=== PATIENT | male | born 1980 | race Caucasian/White ===

== ENCOUNTER 2021-10-25 20:10 | Observation (INO) ==
[2021-10-25 20:52] LABS: Hematocrit (blood only) 45.5 % (42-52); Hemoglobin 16.5 g/dL (14.0-18.0); Mean Corpuscular Hemoglobin 32.9 pg (25-34); Mean Corpuscular Hgb Conc 36.3 g/dL (32-36); Mean Corpuscular Volume 90.6 fL (80-100); Platelet Count 267 K/uL (130-400); RDW Coefficient of Variation 13.9 % (11.5-14.5); Red Blood Count 5.02 M/uL (4.7-6.1); White Blood Count 8.57 K/uL (4.8-10.8)
[2021-10-25 21:08] LABS: INR 0.9 (0.9-1.1); Partial Thromboplastin Time 26.2 Seconds (21.0-31.0); Prothrombin Time 9.8 Seconds (9.0-12.0)
[2021-10-25 21:23] LABS: Anion Gap 8 (3-11); Blood Urea Nitrogen 16 mg/dl (6-23); Calcium 9.4 mg/dl (8.5-10.1); Carbon Dioxide 24 mmol/L (21-32); Chloride 106 mmol/L (98-107); Creatinine Clr Calc Pharmacy 80.8 ml/min; Est GFR (African American) 90.8 ml/min; Est GFR (Non-African American) 78.3 ml/min; Glucose 131 mg/dl (70-99(Fasting)); Lipase 76 U/L (11-82); Potassium 3.7 mmol/L (3.5-5.1); Sodium 138 mmol/L (136-145)
[2021-10-25 21:25] LABS: Troponin I < 0.03 ng/ml (0-0.04)
[2021-10-25 22:03] LABS: Basophils # (auto) 0.04 K/uL (0-0.2); Basophils % (auto) 0.5 %; Eosinophils # (auto) 0.45 K/uL (0-0.5); Eosinophils % (auto) 5.3 %; Immature Granulocytes # (auto) 0.02 K/uL (0.00-0.02); Immature Granulocytes % (auto) 0.2 %; Lymphocytes % (auto) 36.2 %; Monocytes # (auto) 0.62 K/uL (0.11-0.59); Monocytes % (auto) 7.2 %; Neutrophils # (auto) 4.34 K/uL (1.4-6.5); Neutrophils % (auto) 50.6 %
[2021-10-25] MEDS ORDERED: ASPIRIN 81 MG CHEW PO STA (22:32)
--- NOTE | 2021-10-25 23:33 | History & Physical Report ---
Date of Service October 25, 2021 Assessment & Plan (1) Chest pain: Plan: Alvaro Chin is a 41-year-old male with history of tobacco use who presented to the hospital due to chest pain. He will be admitted for observation, cardiac monitoring, serial cardiac enzymes. Chest pain Patient does not have an established history of cardiac disease, though admittedly he does not visit his PCP often He does have several risk factors including tobacco use, elevated cholesterol, strong family history, excessive alcohol use Admit to telemetry cardiac monitoring Trend serial troponins initial troponin negative EKG showing normal sinus rhythmEKG daily and as needed with chest pain Lipid profile and A1c ordered for a.m. for risk stratification Alcohol abuse Patient admits to consumption of 6 beers daily, does not feel this is an issue, no wish to quit Last drink 2 days ago, would put him at risk for acute alcohol withdrawal No current signs of withdrawal Will start on AWSS protocol, Ativan as needed for at risk patient Tobacco use Encouraged cessation Provide alcohol cessation education DVT prophylaxis: Lovenox SQ Dispo: Admit to telemetry Diet: Heart healthy CODE STATUS: Full (2) Tobacco use: (3) Alcohol abuse: History of Present Illness Primary Care Provider: Demar Low MD Alvaro Chin is a 41-year-old male with history of tobacco use who presented to the hospital due to chest pain since 8 PM on 10/24/2021. He says at worst the pain was a 5 out of 10, described as aching and heavy and radiated down his right arm. States the pain eventually did decrease in intensity especially with rest and is now at about a 2 out of 10 feeling more like a pressure. It did continue to radiate down his right arm intermittently throughout the day. He says he felt like his chest was tense all day. He did not have shortness of breath, palpitations, nausea, vomiting, diaphoresis, headache. He did feel somewhat lightheaded and admits to having felt very anxious about the chest pain. Patient admits to having occasional heartburn. He is a current active smoker. He was stating that he will have a cigarette and a couple of beers on a daily basis. Upon further questioning he admitted that he drinks about 6 beers daily. Patient has a strong family history of heart issues. His dad had a heart attack at age 44, he had 2 uncles from heart attacks also at age 44, and has 9 additional paternal uncles and he says most of them have had heart attacks in t heir lifetime. In the ED patient received aspirin 324 mg. EKG showed normal sinus rhythm without ST changes. He had a chest x-ray showing no acute cardiopulmonary disease. Labs drawn in the ED showed a negative troponin, normal blood counts, and normal electrolytes. Allergies Allergy/AdvReac Type Severity Reaction Status Date / Time Penicillins Allergy Severe Anaphylaxis Verified 10/25/21 21:06 ENVIRONMENTAL Allergy Intermediate ITCHY Uncoded 10/25/21 21:06 EYES, SNEEZING, CONGESTION Home Medications Medication Instructions Recorded Confirmed Type aspirin 81 mg tablet,delayed 81 mg PO ONCE 10/25/21 10/25/21 History release atorvastatin 40 mg tablet 40 mg PO DAILY #30 tab 10/26/21 Rx nitroglycerin 0.4 mg sublingual 0.4 mg SUBLINGUAL DAILY PRN #30 tab 10/26/21 Rx tablet (Nitrostat) thiamine HCl (vitamin B1) 100 mg 100 mg PO QAM #30 tab 10/26/21 Rx tablet Past Med/Surg History Medical History (Updated 10/26/21 @ 00:15 by Gonzales Aldrich) No pertinent past medical history Surgical History (Updated 10/25/21 @ 23:59 by Gonzales Aldrich) No pertinent past surgical history Family History (Updated 10/26/21 @ 00:00 by Gonzales Aldrich) Father Myocardial infarction [place] in his 40s Social History Smoking Status: Current some day smoker Second Hand Exposure: No; Hx Alcohol Use: Yes Alcohol type: beer Hx Substance Use: No Preferred Language: Iranian Communication Ability: Effective Candy Polisher Required: No Beliefs That Will Affect Care: None Current Living Situation: Significant Other Feels Safe at Home: Yes Assistive Devices: None Review of Systems Review of Systems: All systems reviewed & are unremarkable except as noted in HPI & below Physical Exam Physical Exam: GENERAL: A&Ox3. NAD. HEENT: PERRL, EOMI. Moist mucous membranes. NECK: No JVD. No lymphadenopathy. CHEST/LUNGS: CTAB A/P. No crackles, wheezes, rales, rhonchi. CP not reproducible on palpation. HEART: RRR. No m/g/r. No carotid bruits. ABDOMEN: NT/ND, soft. BS+ x4 EXTREMITIES: No cyanosis, no clubbing, no edema SKIN: Warm and dry. No rashes or lesions. PSYCHIATRIC: Euthymic affect, no SI, no pressured speech, no hallucinations NEUROLOGIC: No FND. CN II-XII grossly intact. Results & Data Results & Data ([facility]) Vital Signs (Past 12 Hours) Vital Signs Temp Pulse Pulse Resp BP BP Pulse Ox 10/25/21 22:43 63 18 139/91 98 10/25/21 21:07 61 63 18 136/95 98 10/25/21 20:17 36.7 C 77 18 152/94 H 98 Code Status & VTE Plan VTE Prophylaxis Plan VTE Prophylaxis will be ordered: Yes Supervising Physician Co-Signing Physician Notes Attending addendum: I have physically seen this patient, have supervised the medical residents activities, and agree with the H&P unless as otherwise noted. Assessment and Plan: Chest pain- The patient will be admitted to telemetry for serial cardiac enzymes, serial EKG's, cardiac rhythm monitoring and a 2-D echocardiogram with Dopplers. Check a fasting lipid panel and hemoglobin A1c Alcohol abuse- AWSS protocol IV fluid rehydration Cessation counseling Tobacco use disorder- cessation counseling Remaining orders and notations as noted Resident Activity Tracking Resident Involvement: Resident Care Provided Care Provided: Adult Hospital Medicine (1) Chest pain Chest pain type: unspecified Qualified Code(s): R07.9 - Chest pain, unspecified
--- NOTE | 2021-10-26 00:03 | Emergency Department Note ---
History of Present Illness General Chief Complaint: Chest Pain Stated Complaint: CHEST PAIN/TIGHTNESS. LIGHTHEADED Time Seen by Provider: 10/25/21 20:22 History of Present Illness Provider Complaint: chest pain Onset (ago): day(s) 2 Duration: intermittent Onset: during rest Pain Location: substernal Pain Radiation: RUE Severity: moderate Maximum Pain Intensity: 5 Current Pain Intensity: 0 Quality: + aching and + heaviness Relieved By: + rest Exacerbated By: + nothing Context: no recent illness, no recent surgery, no recent immobilization, no recent travel, no trauma/injury, no new medications or no history of DVT/PE Associated symptoms: no nausea, no vomiting, no diaphoresis, no dyspnea, no syncope, no palpitations, no fever, no cough or no leg swelling Home Medications Medication Instructions Recorded Confirmed Type aspirin 81 mg tablet,delayed 81 mg PO ONCE 10/25/21 10/25/21 History release Allergies Allergy/AdvReac Type Severity Reaction Status Date / Time Penicillins Allergy Severe Anaphylaxis Verified 10/25/21 21:06 ENVIRONMENTAL Allergy Intermediate ITCHY Uncoded 10/25/21 21:06 EYES, SNEEZING, CONGESTION Past Med/Surg History Medical History (Updated 10/26/21 @ 00:15 by Gonzales Aldrich) No pertinent past medical history Surgical History (Updated 10/25/21 @ 23:59 by Gonzales Aldrich) No pertinent past surgical history Family History (Updated 10/26/21 @ 00:00 by Gonzales Aldrich) Father Myocardial infarction [place] in his 40s Social History Smoking Status: Current every day smoker Preferred Language: Tajik Feels Safe at Home: Yes Review of Systems A total of 10 systems reviewed and were otherwise negative Physical Exam Vital Signs Vital Signs - 24 hr 10/25/21 20:17 10/25/21 21:07 10/25/21 22:43 Temperature 36.7 C Temperature Source Temporal Artery Scan Pulse Rate 77 61 Pulse Rate [Finger] 63 63 Pulse Rhythm Regular Pulse Strength Normal Respiratory Rate 18 18 18 Respiratory Effort / Characteristics Non-Labored Respiratory Depth Normal Respiratory Pattern Regular Blood Pressure 152/94 H Blood Pressure [Left Arm] 136/95 139/91 Blood Pressure Mean 113 Blood Pressure Mean [Left Arm] 108 107 Blood Pressure Position Lying Pulse Oximetry 98 98 98 Oxygen Delivery Method Room Air Room Air Room Air Sepsis Recent Fever Within 48 Hours No Sepsis New/Unexplained Change in Mental Status N/A Sepsis Action Taken by Nursing No Action Required 10/26/21 00:08 Temperature Temperature Source Pulse Rate 60 Pulse Rate [Finger] Pulse Rhythm Pulse Strength Respiratory Rate 18 Respiratory Effort / Characteristics Respiratory Depth Respiratory Pattern Blood Pressure 135/90 Blood Pressure [Left Arm] Blood Pressure Mean Blood Pressure Mean [Left Arm] Blood Pressure Position Pulse Oximetry 97 Oxygen Delivery Method Room Air Sepsis Recent Fever Within 48 Hours Sepsis New/Unexplained Change in Mental Status Sepsis Action Taken by Nursing Physical Exam GENERAL: He is oriented to person, place, and time. He appears well-developed and well-nourished. He does not appear distressed. HENT: Exam performed. - Head: Normocephalic and atraumatic. - Right Ear: External ear normal. No mastoid tenderness. - Left Ear: External ear normal. No mastoid tenderness. - Mouth/Throat: The oropharynx is clear and moist. No trismus in the jaw. No dental abscesses or uvula swelling. No oropharyngeal exudate or tonsillar abscesses. EYES: Conjunctivae and EOM are normal. Pupils are equal, round, and reactive to light. Right eye exhibits no discharge. Left eye exhibits no discharge. No scleral icterus. NECK: Normal range of motion. Neck supple. No JVD present. No spinous process tenderness present. No carotid bruit present. No rigidity. No tracheal deviation and normal range of motion present. No Brudzinski's sign and no Kernig's sign noted. CV: Normal rate, regular rhythm, normal heart sounds and intact distal pulses. There is no peripheral edema. Palpable radial pulses bue. PULM/CHEST: Effort normal and breath sounds normal. No respiratory distress. No stridor. He has no wheezes. He has no rales. - Chest Wall: He exhibits no tenderness. ABD: The abdomen is soft. Bowel sounds are normal. He has no distension. No mass is present. There is no tenderness. There is no rebound, no guarding, no Mccall's sign and no tenderness at McBurney's point. Rovsig negative. MUSC/SKEL: Normal range of motion. There is no peripheral edema, tenderness or deformity. LYMPH: No cervical adenopathy. NEURO: He is alert and oriented to person, place, and time. He has normal strength. No cranial nerve deficit or sensory deficit. Coordination and gait normal. GCS eye subscore is 4. GCS verbal subscore is 5. GCS motor subscore is 6. Cerebellar tests wnl. SKIN: Skin is warm and dry. He is not diaphoretic. PSYCH: He has a normal mood and affect. Behavior is normal. Judgment and thought content normal. Course Course 2021: The patient was evaluated in room C3. A complete history and physical exam was performed Cardiac monitoring: An order was placed for continuous cardiac monitoring. The monitor shows a rate of 60 with sinus rhythm 2315: Vital signs stable. Labs and imaging within normal limits patient was offered delta troponin and possible outpatient follow-up cardiology inpatient observation for rule out ACS. After long discussion with his the patient elected for the patient to be admitted for observation for chest pain rule out ACS. [place] any hospitalist will be contacted for admission. Administered Medications Discontinued Medications Aspirin (Aspirin 81 Mg Chew) 324 mg PO NOW STA Stop: 10/25/21 22:33 Last Admin: 10/25/21 22:43 Dose: 324 mg Documented by: [id number] Medical Decision Making Laboratory Data Result diagrams: 10/25/21 20:35 10/25/21 20:35 Labs: Lab Results 10/25/21 10/25/21 10/25/21 Range/Units 20:35 20:35 20:35 WBC 8.57 (4.8-10.8) K/uL RBC 5.02 (4.7-6.1) M/uL Hgb 16.5 (14.0-18.0) g/dL Hct 45.5 (42-52) % MCV 90.6 (80-100) fL MCH 32.9 (25-34) pg MCHC 36.3 H (32-36) g/dL RDW Std Deviation 46.0 (36.4-46.3) fL RDW Coeff of Harriet 13.9 (11.5-14.5) % Plt Count 267 (130-400) K/uL MPV 9.0 (7.4-10.4) fL Immature Gran % (Auto) 0.2 % Neut % (Auto) 50.6 % Lymph % (Auto) 36.2 % White % (Auto) 7.2 % Eos % (Auto) 5.3 % Baso % (Auto) 0.5 % Neut # (Auto) 4.34 (1.4-6.5) K/uL Lymph # (Auto) 3.10 (1.2-3.4) K/uL White # (Auto) 0.62 H (0.11-0.59) K/uL Eos # (Auto) 0.45 (0-0.5) K/uL Baso # (Auto) 0.04 (0-0.2) K/uL Immature Gran # (Auto) 0.02 (0.00-0.02) K/uL PT 9.8 (9.0-12.0) Seconds INR 0.9 (0.9-1.1) APTT 26.2 (21.0-31.0) Seconds PTT Ratio 1.0 Sodium 138 (136-145) mmol/L Potassium 3.7 (3.5-5.1) mmol/L Chloride 106 (98-107) mmol/L Carbon Dioxide 24 (21-32) mmol/L Anion Gap 8 (3-11) BUN 16 (6-23) mg/dl Creatinine 1.14 (0.6-1.4) mg/dl Est Cr Clr Drug Dosing 80.8 ml/min Est GFR ( Amer) 90.8 ml/min Est GFR (Non-Af Amer) 78.3 ml/min BUN/Creatinine Ratio 14.0 (10-20) Glucose 131 H (70-99(Fasting)) mg/dl Calcium 9.4 (8.5-10.1) mg/dl Troponin I < 0.03 (0-0.04) ng/ml Lipase 76 (11-82) U/L SARS-CoV-2, RNA, NAAT (NEGATIVE) 10/25/21 Range/Units 22:45 WBC (4.8-10.8) K/uL RBC (4.7-6.1) M/uL Hgb (14.0-18.0) g/dL Hct (42-52) % MCV (80-100) fL MCH (25-34) pg MCHC (32-36) g/dL RDW Std Deviation (36.4-46.3) fL RDW Coeff of Harriet (11.5-14.5) % Plt Count (130-400) K/uL MPV (7.4-10.4) fL Immature Gran % (Auto) % Neut % (Auto) % Lymph % (Auto) % White % (Auto) % Eos % (Auto) % Baso % (Auto) % Neut # (Auto) (1.4-6.5) K/uL Lymph # (Auto) (1.2-3.4) K/uL White # (Auto) (0.11-0.59) K/uL Eos # (Auto) (0-0.5) K/uL Baso # (Auto) (0-0.2) K/uL Immature Gran # (Auto) (0.00-0.02) K/uL PT (9.0-12.0) Seconds INR (0.9-1.1) APTT (21.0-31.0) Seconds PTT Ratio Sodium (136-145) mmol/L Potassium (3.5-5.1) mmol/L Chloride (98-107) mmol/L Carbon Dioxide (21-32) mmol/L Anion Gap (3-11) BUN (6-23) mg/dl Creatinine (0.6-1.4) mg/dl Est Cr Clr Drug Dosing ml/min Est GFR ( Amer) ml/min Est GFR (Non-Af Amer) ml/min BUN/Creatinine Ratio (10-20) Glucose (70-99(Fasting)) mg/dl Calcium (8.5-10.1) mg/dl Troponin I (0-0.04) ng/ml Lipase (11-82) U/L SARS-CoV-2, RNA, NAAT NEGATIVE (NEGATIVE) Imaging Data Chest x-ray: My impression: Chest x-ray negative. Airway clear. No pneumothorax. No consolidation. No cardiomegaly or cephalization.. No free air under the diaphragm. No fractures of the skeletal structures. ECG Data Indication: chest pain Rate (beats per minute): 64 Rhythm: normal sinus Findings: no ST depression, no ST elevation or no prolonged QT MDM Narrative Vital signs stable. Labs and imaging within normal limits patient was offered delta troponin and possible outpatient follow-up cardiology inpatient observation for rule out ACS. After long discussion with his the patient elected for the patient to be admitted for observation for chest pain rule out ACS. [place] any hospitalist will be contacted for admission. Impression & Plan Chest pain Discharge Plan Visit Data Chief Complaint: Chest Pain Stated Complaint: CHEST PAIN/TIGHTNESS. LIGHTHEADED ED Provider: Gonzales Aldrich Discharge Problem: Chest pain Patient Disposition: Admitted As Inpatient Discharge Instructions Interventions: ED Discharge Assessment Last Done: 10/26/21 00:08 Forms Stand Alone Forms: [employer] Prescriptions Prescriptions: No Action aspirin 81 mg Tablet,Delayed Release (Dr/Ec) 81 mg PO ONCE RF: 0 Referrals Referrals: Demar Low MD [Primary Care Provider] -
[2021-10-26] MEDS ORDERED: NITROGLYCERIN SL 0.4 MG/TAB TAB SL PRN (00:27)
[2021-10-26] MEDS ORDERED: POLYETHYLENE (MIRALAX) 17 GM PACK PO PRN (00:27)
[2021-10-26] MEDS ORDERED: MoRPHine SULFATE 2 MG/ML CARP IV PRN (00:27)
[2021-10-26] MEDS ORDERED: ACETAMINOPHEN 325 MG TAB PO PRN (00:27)
[2021-10-26 01:18] LABS: Basophils # (auto) 0.03 K/uL (0-0.2); Basophils % (auto) 0.3 %; Eosinophils # (auto) 0.31 K/uL (0-0.5); Eosinophils % (auto) 3.5 %; Hematocrit (blood only) 44.8 % (42-52); Hemoglobin 15.8 g/dL (14.0-18.0); Immature Granulocytes # (auto) 0.02 K/uL (0.00-0.02); Immature Granulocytes % (auto) 0.2 %; Lymphocytes # (auto) 2.46 K/uL (1.2-3.4); Mean Corpuscular Hemoglobin 32.2 pg (25-34); Mean Corpuscular Hgb Conc 35.3 g/dL (32-36); Mean Corpuscular Volume 91.2 fL (80-100); Mean Platelet Volume 9.2 fL (7.4-10.4); Monocytes # (auto) 0.58 K/uL (0.11-0.59); Monocytes % (auto) 6.6 %; Neutrophils # (auto) 5.38 K/uL (1.4-6.5); Neutrophils % (auto) 61.4 %; Platelet Count 276 K/uL (130-400); RDW Coefficient of Variation 13.8 % (11.5-14.5); RDW Standard Deviation 46.5 fL (36.4-46.3); Red Blood Count 4.91 M/uL (4.7-6.1); White Blood Count 8.78 K/uL (4.8-10.8)
[2021-10-26 01:45] LABS: Albumin Globulin Ratio 1.7 (0.9-2); Albumin Level 4.3 gm/dl (3.4-5.0); BUN Creatinine Ratio 11.7 (10-20); Bilirubin,Total 0.4 mg/dl (0.2-1.0); Calcium 9.1 mg/dl (8.5-10.1); Chol HDL Ratio 4.8 (0-5); Est GFR (African American) 93.8 ml/min; Est GFR (Non-African American) 80.9 ml/min; Globulin 2.5 gm/dl (2.5-4.0); Potassium 4.2 mmol/L (3.5-5.1); Total Protein 6.8 gm/dl (6.0-8.3)
[2021-10-26] MEDS ORDERED: LORazepam 2 MG/1 ML VIAL IV PRN (02:17)
--- NOTE | 2021-10-26 07:50 | XRay Report ---
XR chest 1V portable CLINICAL HISTORY: Atypical chest pain TECHNIQUE: Single frontal radiograph of the chest was obtained. Comparison: None available at the time of this dictation. FINDINGS: No lines and tubes are seen. The cardiomediastinal silhouette is normal. The lungs are clear. No evid ence of pleural effusion or pneumothorax. IMPRESSION: No acute chest disease. ACT 112: Negative or not required by law. Electronically signed by: Tukcer Wang M.D. 10/26/2021 7:49 AM
[2021-10-26] MEDS ORDERED: PANTOprazole 40 MG TAB PO SCH (09:00)
[2021-10-26] MEDS ORDERED: FOLIC ACID 1 MG TAB PO SCH (09:00)
[2021-10-26] MEDS ORDERED: ENOXAPARIN INJ 40 MG/0.4 ML SYR SQ SCH (09:00)
[2021-10-26] MEDS ORDERED: THIAMINE HCL 100 MG TAB PO SCH (09:00)
[2021-10-26 09:08] LABS: Estimated Average Glucose 117 mg/dl; Hemoglobin A1C 5.7 % (4.5-5.6)
--- NOTE | 2021-10-26 14:22 | Discharge Summary ---
Date of Service October 26, 2021 Admission HPI Per Admitting Provider Alvaro Chin is a 41-year-old male with history of tobacco use who presented to the hospital due to chest pain since 8 PM on 10/24/2021. He says at worst the pain was a 5 out of 10, described as aching and heavy and r adiated down his right arm. States the pain eventually did decrease in intensity especially with rest and is now at about a 2 out of 10 feeling more like a pressure. It did continue to radiate down his right arm intermittently throughout the day. He says he felt like his chest was tense all day. He did not have shortness of breath, palpitations, nausea, vomiting, diaphoresis, headache. He did feel somewhat lightheaded and admits to having felt very anxious about the chest pain. Patient admits to having occasional heartburn. He is a current active smoker. He was stating that he will have a cigarette and a couple of beers on a daily basis. Upon further questioning he admitted that he drinks about 6 beers daily. Patient has a strong family history of heart issues. His dad had a heart attack at age 44, he had 2 uncles from heart attacks also at age 44, and has 9 additional paternal uncles and he says most of them have had heart attacks in their lifetime. In the ED patient received aspirin 324 mg. EKG showed normal sinus rhythm without ST changes. He had a chest x-ray showing no acute cardiopulmonary disease. Labs drawn in the ED showed a negative troponin, normal blood counts, and normal electrolytes. Principal Diagnosis Chest pain Discharge Exam General: A&Ox3. NAD. Cooperative. HEENT: Atraumatic, normocephalic. Pulm: CTAB A&P. -wheezes, -rales, -rhonchi. Symmetrical chest rise. No increase in work of breathing. No respiratory distress. Cardiac: RRR, -mrg. Radial pulses intact and symmetrical. Abdominal: Nontender, nondistended, soft. BS present. Discharge Data Allergies Allergy/AdvReac Type Severity Reaction Status Date / Time Penicillins Allergy Severe Anaphylaxis Verified 10/25/21 21:06 ENVIRONMENTAL Allergy Intermediate ITCHY Uncoded 10/25/21 21:06 EYES, SNEEZING, CONGESTION Consultations 10/25/21 22:35 ED Decision to Admit Stat Hospital Course (1) Chest pain: Alvaro Chin is a 41-year-old male with history of tobacco use who presented to the hospital due to chest pain. He was admitted for cardiac e valuation. To do as outpatient: 1. Continue atorvastatin 40 mg daily 2. Continue aspirin 81 mg daily 3. Continue thiamine 100 mg daily for 1 month 4. Continue nitroglycerin 0.4 mg sublingual as needed, patient to contact PCP or 911 for symptoms if needed 5. Patient with strong family history with many family members with [place] at approximately age 42. Recommended to follow-up with cardiac stress test as outpatient Chest pain Patient does not have an established history of cardiac disease, though admittedly he does not visit his PCP often He does have several risk factors including tobacco use, elevated cholesterol, strong family history, excessive alcohol use Heart score 3 points Followed on telemetry, no arrhythmia noted during admission Serial troponin x3 were negative EKG showing normal sinus rhythm Elevated cholesterol. Cholesterol 228, LDL 155, HDL 48 Started on atorvastatin 40 mg daily, aspirin 81 mg daily Discussed the patient will need a LFT check with his PCP within 10 days A1c 5.7 Patient to follow-up for outpatient cardiac stress test based on family history Alcohol abuse Patient admits to consumption of 6 beers daily, does not feel this is an issue, no wish to quit Last drink 2 days ago, would put him at risk for acute alcohol withdrawal No current signs of withdrawal Was on antibiosis protocol no Ativan needed Tobacco use Encouraged cessation Provided alcohol cessation education -This defect of tobacco on his risk of [place], patient expresses understanding of this but unsure of if he wants to try to quit. Declines and RT. (2) Tobacco use: (3) Alcohol abuse: Total Time Total Time Spent Total Time Spent (In Minutes): Time spend day of discharge 35 minutes including direct patient care, documentation, review of labs and images, and coordination of care. Discharge Plan Discharge Items Patient Disposition: Home - Self-Care Reason For Visit: CHEST PAIN Discharge Diagnosis: Chest Pain Activity: As commented below Non-emergency contact: Primary Care Provider Call non-emergency contact if: you have any medication questions, your symptoms worsen, your pain is not controlled and your pain is worsening Follow-up/Referrals: Demar Low MD [Primary Care Provider] - Diet: Heart Healthy Addtl Attending Provider Instructions: You were seen in the hospital for an episode of chest pain which resolved after admission with aspirin and a dose of nitoglycerin. You were watched for a cardiac evaluation overnight. You had 3 sequential blood measurements (troponin) which did not show any evidence of heart damage or ischemia. Your EKG did not show any evidence of a heart attack. You are high risk for heart attack based on your family history, tobacco use, and cholesterol. You have been recommended to followup with a cardiac stress test as an outpatient. You have been prescribed medications as noted below. You have been prescribed a cholesterol medication to lower your cholesterol and protect your heart. Please take atorvastatin 40 mg daily. Rarely this can cause muscle aches or liver enzyme increases. You should have a repeat liver enzyme test within 10 days performed by your primary care physician to make sure you are tolerating this medicine well. You have been prescribed a daily low-dose aspirin. Please take aspirin 81 mg daily. You have been prescribed nitroglycerine tablets, an as needed medication for chest pain. If you experience chest pain please take one tablet and call your doctor for recommendations. If you have severe pain or other concerning symptoms, please call 911 for evaluation. Chronic/regular alcohol use can lead to vitamin deficiency. You have been prescribed a daily thiamine (vitamin B1) tablet 100mg daily for 1 month to optimize nutrition. Blood pressure was adequately controlled during admission, high blood pressure can contribute to heart attack risk so if you experience high blood pressure in the future please discuss this with your primary care physician. You should have a cardiac stress test scheduled to follow-up on your chest pain given your risk factors and strong family history. This can be ordered by your primary care physician, or you can be referred to cardiology for further care. An appointment is being scheduled for you with your primary care physician, you should be seen within 10 days and please discuss this at that visit. If you develop any new or worsening symptoms including fever, chills, sweats, chest pain, chest pressure, difficulty breathing, uncontrolled nausea/vomiting, rash, wheezing, passing out or nearly passing out, bleeding, black/bloody bowel movements, or other new or concerning symptoms please call your primary care physician, or call 911 for re-evaluation in the emergency department if you are very concerned. Pending Studies at Discharge: No Stand-Alone Forms: [employer], Smoking Cessation Medications and DC Order Prescriptions: New atorvastatin 40 mg tablet 40 mg PO DAILY Qty: 30 RF: 0 thiamine HCl (vitamin B1) 100 mg Tablet 100 mg PO QAM Qty: 30 RF: 0 nitroglycerin [Nitrostat] 0.4 mg Tablet, Sublingual 0.4 mg sublingual DAILY PRN (Reason: chest pain) Qty: 30 RF: 0 Continued aspirin 81 mg Tablet,Delayed Release (Dr/Ec) 81 mg PO ONCE RF: 0 Discharge Orders: Discharge Order (Routine); Ordered 10/26/21 Ordered By: Sam Cheng Admission Data Admit Date/Time: 10/25/21 23:12 Attending Provider: Sam Cheng Admit Provider: Roly Roberts Primary Care Provider: Demar Low Other Providers: Lc Damon Coding Level of Care Code D/C DAY MANAGEMENT >30 MINS Diagnoses Chest pain R07.9 Chest pain type: unspecified Tobacco use Z72.0 Alcohol abuse F10.10
--- NOTE | 2021-10-26 22:03 | Electrocardiogram Report ---
Test Reason : Blood Pressure : / mmHG Vent. Rate : 064 BPM Atrial Rate : 064 BPM P-R Int : 158 ms QRS Dur : 106 ms QT Int : 398 ms P-R-T Axes : 027 037 044 degrees QTc Int : 410 ms Normal sinus rhythm Normal ECG No previous ECGs available Confirmed by Kin Castro ([id number]) on 10/26/2021 10:03:04 PM Referred By: REFERRED SELF Confirmed By:Kin Castro
--- NOTE | 2021-10-26 22:23 | Electrocardiogram Report ---
Test Reason : Blood Pressure : / mmHG Vent. Rate : 059 BPM Atrial Rate : 059 BPM P-R Int : 166 ms QRS Dur : 106 ms QT Int : 430 ms P-R-T Axes : 055 055 013 degrees QTc Int : 425 ms Sinus bradycardia Otherwise normal ECG When compared with ECG of 25-OCT-2021 20:25, T wave amplitude has increased in Anterior leads Confirmed by Kin Castro ([id number]) on 10/26/2021 10:23:16 PM Referred By: REFERRED SELF Confirmed By:Kin Castro
--- NOTE | 2021-10-27 03:35 | Billing Data ---
Date of Service October 27, 2021 Coding Level of Care Code INT OBSERVATION CARE 70M LVL 3
== END 2021-10-26 14:50 | disposition home or self-care (01) ==
LOC: ED 20:10 → 2S 20:10 → SUATTDRO 23:12 → 2S 10-26 00:08

== ENCOUNTER 2023-06-13 10:57 | Inpatient (IN) ==
--- NOTE | 2023-05-27 16:06 | PAT Medication Instructions ---
Medication Instructions Date of Service May 27, 2023 Home Medications Medication Instructions Recorded atorvastatin 40 mg tablet 40 mg PO DAILY #30 tabs 10/26/21 nitroglycerin 0.4 mg sublingual 0.4 mg sublingual DAILY PRN chest 10/26/21 tablet (Nitrostat) pain #30 tabs thiamine HCl (vitamin B1) 100 mg 100 mg PO QAM #30 tabs 10/26/21 tablet aspirin 81 mg tablet,delayed release 81 mg PO ONCE atorvastatin 40 mg tablet 40 mg PO DAILY nitroglycerin 0.4 mg sublingual tablet (Nitrostat) 0.4 mg sublingual DAILY PRN thiamine HCl (vitamin B1) 100 mg tablet 100 mg PO QAM albuterol sulfate 90 mcg/actuation breath activated powder inhaler 1 inh inhalation QID PRN omeprazole magnesium 20 mg tablet,delayed release (Prilosec OTC) 20 mg PO DAILY Continue as directed atorvastatin 40 mg tablet 40 mg PO DAILY omeprazole magnesium 20 mg tablet,delayed release (Prilosec OTC) 20 mg PO DAILY nitroglycerin 0.4 mg sublingual tablet (Nitrostat) 0.4 mg sublingual DAILY PRN (if needed) ASK your prescriber and surgeon aspirin 81 mg tablet,delayed release 81 mg PO ONCE DO NOT take the morning of surgery thiamine HCl (vitamin B1) 100 mg tablet 100 mg PO QAM Take morning of surgery With a small sip of water, OTHERWISE NOTHING TO EAT OR DRINK AFTER MIDNIGHT: albuterol sulfate 90 mcg/actuation breath activated powder inhaler 1 inh inhalation QID PRN(use if needed; please bring with you to [facility] if possible) Take evening before surgery albuterol sulfate 90 mcg/actuation breath activated powder inhaler 1 inh inhalation QID PRN(if needed) Other Notes If you have any questions please call us at [phone] or [phone] or [phone] or [phone]
--- NOTE | 2023-05-30 14:12 | Anesthesiology Consultation ---
Date of Service May 30, 2023 Assessment & Plan (1) Encounter for pre-operative examination: - awaiting surgeon ordered medical clearance, PCP is GREGORIA Cerna. - eczema: pt states chlorhexidine wipe use may cause skin redness. He denies known h/o issues with chlorhexidine. He was provided with an extra packet and advised to follow instructions on arm or leg soon and if no issues, to then use chlorhexidine wipes as advised. He was instructed if he develops skin redness/itching/rash or other symptoms to notify the surgeon's office and not use chlorhexidine wipes prior to surgery. He verbalized understanding and agreement, denied questions or concerns. Chart Review Chart Review: Pending: Refer to Additional Notes / Consult section and Patient seen in Pre Admission Testing Teaching & Discussion Pre-Anesthesia Teaching/Discussion Notes: Instructed NPO after midnight before surgery, except medications with 15 cc of water. Medication instructions provided according to the PAT guidelines. History Surgery Operation Date: 06/13/23 07:45 Proposed Procedures p L4-S1 Decompression and Fusion, Spinal Cord Monitoring - Zander Whitehead DO Height/Weight Height: 5 ft 6 in Weight: 78.9 kg Allergies Allergy/AdvReac Type Severity Reaction Status Date / Time Penicillins Allergy Severe Anaphylaxis Verified 05/22/23 12:54 ENVIRONMENTAL Allergy Intermediate ITCHY Uncoded 05/22/23 12:54 EYES, SNEEZING, CONGESTION Medications Home Medications Medication Instructions Recorded Confirmed Last Taken aspirin 81 mg tablet,delayed 81 mg PO ONCE 10/25/21 05/22/23 10/25/21 13:00 release atorvastatin 40 mg tablet 40 mg PO DAILY #30 tabs 10/26/21 05/22/23 Unknown nitroglycerin 0.4 mg sublingual 0.4 mg sublingual DAILY PRN chest 10/26/21 05/22/23 Unknown tablet (Nitrostat) pain #30 tabs thiamine HCl (vitamin B1) 100 mg 100 mg PO QAM #30 tabs 10/26/21 05/22/23 Unknown tablet albuterol sulfate 90 mcg/actuation 1 inh inhalation QID PRN Wheezing 05/22/23 05/22/23 Unknown breath activated powder inhaler omeprazole magnesium 20 mg 20 mg PO DAILY 05/22/23 05/22/23 Unknown tablet,delayed release (Prilosec OTC) Past Medical History Medical History Acid reflux controlled, stable per pt Alcohol abuse pt denies Asthma daily res inh use due to allergy season Chest pain one time event, no more issues, [facility] [place] 10/2021 Chronic back pain Eczema History of COVID-2021 > mild-denies hospitalization-symptoms resolved Hyperlipidemia not taking prescribed med, last blood work was good per pt Kidney stones passed on own Spinal stenosis Tobacco use weekly use Patient denies h/o stroke, seizures, heart attack, heart failure, DM, HTN, blood clots/DVTs or blood transfusions. Exercise / Class Metabolic Activity II 4-5 Yardwork/Stairs/Walk up hill (denies chest discomfort or shortness of breath with 1 FOS) Past Family History Family History Father Myocardial infarction [place] in his 40s Past Surgical History Surgical History History of appendectomy History of tooth extraction Hx of fracture of femur with repair, right Past Anesthesia History No Hx of Anesthesia Complications and No Family Hx of Anesthesia Complications History of PONV No Hx of Motion Sickness and History of PONV (denies needing scop patch) Social History Smoking Status: Current some day smoker tobacco type: cigarettes Smoking cigarettes per day: light use, not daily-advised Do You Dip or Chew Tobacco: No Hx Alcohol Use: Yes Alcohol type: beer alcohol intake frequency: other Alcohol Intake Frequency Comment: used to drink 3 beers per day, now several dr inks once weekly with friend Hx Substance Use: No substance use type: does not use Review of Systems Patient denies chest pain, shortness of breath, dyspnea on exertion, snoring, witnessed apneas, fever, chills, or palpitations. Physical Exam Vital Signs Vitals BP 133/88 P 68 TEMP 98 SP02 95% on RA RESP 17 Physical Patient resting comfortably in chair in no acute distress, alert and oriented, responding appropriately throughout visit Full cervical extension range of motion without pain TMD 3.5 finger breadths Mallampati Score 3 Dentition: intact, denies chipped or loose teeth, caps/crowns, implants or bridges Lungs: normal respiratory effort. Good air movement, clear throughout to auscultation, no adventitious breath sounds Cardiac: regular rate and rhythm, no murmurs noted Carotid arteries: negative bruit bilat Lab Results Anesthesia Preop Results Results Anesthesia Widget: WBC 9.02 K/ul (4.8-10.8) 05/30/23 Hgb 16.1 g/dl (14.0-18.0) 05/30/23 Hct 44.9 % (42.0-52.0) 05/30/23 Plt 309 K/uL (130-400) 05/30/23 Na 138 mmol/L (136-145) 05/30/23 K 4.1 mmol/L (3.5-5.1) 05/30/23 Cl 105 mmol/L (98-107) 05/30/23 CO2 25 mmol/L (21-32) 05/30/23 BUN 9 mg/dl (6-23) 05/30/23 Creat 1.22 mg/dl (0.6-1.4) 05/30/23 Glucose Level 98 mg/dl (70-99(Fasting)) 05/30/23 PT 10.6 Seconds (9.0-12.0) 05/30/23 PTT 27.6 Seconds (21.0-31.0) 05/30/23 INR 1.0 (0.9-1.1) 05/30/23 Urine Color Yellow 05/30/23 Urine Appearance Clear (Clear) 05/30/23 Urine pH 5.5 (4.5-7.5) 05/30/23 Urine Specific [place] 1.020 (1.000-1.030) 05/30/23 Urine Protein Negative (Negative) 05/30/23 Urine Glucose (UA) Negative (Negative) 05/30/23 Urine Ketones Negative (Negative) 05/30/23 Urine Blood 2+ (Negative) H 05/30/23 Urine Nitrite Negative (Negative) 05/30/23 Urine Bilirubin Negative (Negative) 05/30/23 Urine Urobilinogen Negative (Negative) 05/30/23 Urine Leukocyte Esterase Negative (Negative) 05/30/23 Urine WBC (Auto) 1-5 /hpf (0-5) 05/30/23 Urine RBC (Auto) 5-10 /hpf (0-4) H 05/30/23 Urine Hyaline Casts (Auto) 0 /lpf (0-5) 05/30/23 Urine Epithelial Cells (Auto) 0-5 /lpf (0-5) 05/30/23 Urine Bacteria (Auto) Negative (Negative) 05/30/23 Blood Type A Positive 05/30/23 Antibody Screen NEGATIVE 05/30/23 Testing Electrocardiogram Date: 05/30/23 NSR with sinus arrhythmia, rate 65 bpm Incomplete RBBB Chest X-Ray Date: 05/30/23 No acute process
[~2023-06-13 10:57] MED LIST: ACETAMINOPHEN 500 MG TAB PO SCH; CLINDA 900 MG **Premixed Bag IV SCH; CeleBREX 200 MG CAP PO SCH; GABAPENTIN 900 MG DOSE PO SCH; LR 15ML/HR IV SCH; LR 60ML/HR IV SCH
[2023-06-13] MEDS ORDERED: ATROPINE SULFATE 0.1 MG/ML 10ML SYR IV PRN (11:59)
[2023-06-13] MEDS ORDERED: ePHEDrine sulfate 50 MG/ML AMP IV PRN (11:59)
[2023-06-13] MEDS ORDERED: PROMETHAZINE HCL 6.25 MG in SODIUM CHLORIDE 0.9% 50 ML IV PRN (11:59)
[2023-06-13] MEDS ORDERED: fentaNYL citrate PF 100 MCG/2 ML VIAL IV PRN (11:59)
[2023-06-13] MEDS ORDERED: ONDANSETRON INJ 2 MG/ML 2 ML VIAL IV PRN ×2 (11:59→18:03)
--- NOTE | 2023-06-13 13:25 | History & Physical Bridge Note ---
Date of Service June 13, 2023 History & Physical Bridge Note I have examined the patient, reviewed the History & Physical and in the interval since the performance of the History & Physical I have noted the following changes of clinical significance: no changes noted
--- NOTE | 2023-06-13 13:26 | History & Physical Report ---
Date of Service June 13, 2023 Assessment & Plan (1) Neurogenic claudication due to lumbar spinal stenosis: Plan: L4-S1 decompression and fusion History of Present Illness Chief Complaint: Back and leg pain Primary Care Provider: Demar Low MD This is a 42-year-old male who presents with chronic persistent back and leg pain after failing course of nonoperative care is here for surgical invention. Allergies Allergy/AdvReac Type Severity Reaction Status Date / Time Penicillins Allergy Severe Anaphylaxis Verified 06/13/23 11:15 ENVIRONMENTAL Allergy Intermediate ITCHY Uncoded 05/22/23 12:54 EYES, SNEEZING, CONGESTION Home Medications Medication Instructions Recorded Confirmed Type aspirin 81 mg tablet,delayed 81 mg PO ONCE 10/25/21 06/13/23 History release atorvastatin 40 mg tablet 40 mg PO DAILY #30 tabs 10/26/21 05/22/23 Rx nitroglycerin 0.4 mg sublingual 0.4 mg sublingual DAILY PRN chest 10/26/21 05/22/23 Rx tablet (Nitrostat) pain #30 tabs thiamine HCl (vitamin B1) 100 mg 100 mg PO QAM #30 tabs 10/26/21 05/22/23 Rx tablet albuterol sulfate 90 mcg/actuation 1 inh inhalation QID PRN Wheezing 05/22/23 06/13/23 History breath activated powder inhaler omeprazole magnesium 20 mg 20 mg PO DAILY 05/22/23 06/13/23 History tablet,delayed release (Prilosec OTC) Past Med/Surg History Medical History (Updated 06/13/23 @ 13:25 by Zander Whitehead DO) Eczema Spinal stenosis Kidney stones passed on own Chronic back pain History of COVID-19 2021 > mild-denies hospitalization-symptoms resolved Asthma daily res inh use due to allergy season Acid reflux controlled, stable per pt Hyperlipidemia not taking prescribed med, last blood work was good per pt Alcohol abuse pt denies Tobacco use weekly use Chest pain one time event, no more issues, [facility] 10/2021 Surgical History Hx of fracture of femur with repair, right History of appendectomy History of tooth extraction Family History Father Myocardial infarction [place] in his 40s Social History Smoking Status: Current some day smoker Tobacco Type: Cigarettes Cigarettes Per Day: light use, not daily-advised; Second Hand Exposure: No; Do You Dip or Chew Tobacco: No; Tobacco Cessation Education Requested by Patient: No Hx Alcohol Use: Yes Alcohol type: beer Hx Substance Use: No Preferred Language: Peruvian Communication Ability: Effective Street Railway Line Installer Required: No Beliefs That Will Affect Care: None Current Living Situation: Significant Other Other Information That Helps Us Care for You: No Feels Safe at Home: Yes Safety Concerns: Feels Safe At This Time Assistive Devices: Denture - Upper and Glasses Physical Exam Physical Exam: Patient is alert and oriented Heart regular rhythm Lungs clear Results & Data Results & Data Vital Signs (Past 12 Hours) Vital Signs Temp Pulse Resp BP Pulse Ox O2 Del Method 06/13/23 11:19 36.4 C L 59 L 16 134/92 99 Room Air
[2023-06-13] MEDS ORDERED: BUPIVACAINE/EPINEPHRINE 0.25% 1:200,000 30 ML VIAL ONE (13:56)
[2023-06-13] MEDS ORDERED: ceFAZolin 330 MG/ML 1 GM VIAL ONE (13:56)
[2023-06-13] MEDS ORDERED: DEXAMETHASONE SOD INJ 4 MG/ML VIAL ONE (14:01)
[2023-06-13] MEDS ORDERED: ONDANSETRON INJ 2 MG/ML 2 ML VIAL ONE (14:01)
[2023-06-13] MEDS ORDERED: fentaNYL citrate PF 100 MCG/2 ML VIAL ONE (14:01)
[2023-06-13] MEDS ORDERED: LIDOCAINE 2% 2 ML VIAL/AMP(20MG/ML) INFIL ONE (14:01)
[2023-06-13] MEDS ORDERED: PROPOFOL IV EMULSION 10 MG/ML 20 ML VIAL IV ONE (14:01)
[2023-06-13] MEDS ORDERED: MIDAZOLAM HCL 1 MG/ML 2ML VIAL ONE (14:01)
[2023-06-13] MEDS ORDERED: HYDROmorphone INJ 2 MG/ML SYR/VIAL ONE (14:01)
[2023-06-13] MEDS ORDERED: SUCCINYLCHOLINE CHLORIDE 20 MG/ML 10 ML VIAL IV ONE (14:01)
[2023-06-13] MEDS ORDERED: ROCURONIUM BROMIDE 10 MG/ML 5 ML VIAL IV ONE (14:41)
[2023-06-13] MEDS ORDERED: GLYCOPYRROLATE 0.2 MG/ML VIAL ONE (15:29)
[2023-06-13] MEDS ORDERED: FLOSEAL HEMOSTATIC MATRIX 10ML TOP ONE (15:30)
[2023-06-13] MEDS ORDERED: SUGAMMADEX SODIUM 200 MG/2 ML VIAL IV ONE (15:39)
[2023-06-13] MEDS ORDERED: diphenhydrAMINE 50 MG/ML VIAL ONE (15:40)
--- NOTE | 2023-06-13 16:12 | Operative Report ---
Post Operative Report Pre & Post Diagnosis Operation Date: 06/13/23 12:35 Pre-Op Diagnosis: Lumbar spinal stenosis with neurogenic claudication Post-Op Diagnosis: Same I identified the patient and participated in the time-out.: Yes Procedure Operation Date: 06/13/23 12:35 Actual Procedures #1 lumbar decompression with bilaterally facetectomies and foraminotomies L3-L4, L4-5 and L5-S1. #2 posterior spinal fusion L4-S1. #3 placed posterior instrumentation L4-S1. #4 interbody fusion L4-L5 L5-S1. #5 placement Spira 12 x 26 mm at L4-5 and 11 x 26 mm x 2 at L5-S1. #6 placement locally harvested morselized autograft in the posterior gutters. #7 placement of I factor in the interbody space and infuse collagen sponge by master graft in the posterior gutters. Surgeon Zander Whitehead DO Carder Blankets Devonte Santoro Estimated Blood Loss 100 Findings Consistent with Post-Op Diagnosis Specimens None Indications This is a 42-year-old male who presents above-mentioned diagnosis and failing since course of nonoperative care is here for surgical invention. Description of Procedure Patient was met with identified informed consent obtained. Patient was then taken to the operative suite underwent a patient placed in a prone position the [place] operative Elio frame. Operative prominences well-padded eyes inspected to ensure no external pressure placed upon the. This point the lumbar spine was prepped and draped in a sterile fashion. Sharp dissection with the assistance of Bovie cautery form down to and exposing the lamina transverse processes of L4-5 and sacral ala bilaterally. From caudal cephalad fashion complete laminectomy L5 L4 and partial laminectomy L3 was performed including bilateral medial facetectomies and foraminotomies addressing severe spinal stenosis. Pedicle screws were then placed in L4-L5 and S1 levels bilaterally with assistance of fluoroscopy and appropriately sized kelsy placed. By way the transforaminal approach on the right discectomy of L5-S1 was performed endplates guided to subcortical bleeding bone and a 10 x 26 mm Spira cage filled with I factor tapped the position. Then proceeded to the left L5-S1 transforaminal space completed the discectomy curetted the endplates to subcortical bleeding bone and placed a second 10 x 26 mm Spira cage with I factor into position. Then proceeded L4-L5 by way of transforaminal approach on the left complete discectomy was performed endplates guided to subcortically bone and a 12 x 26 mm Spira cage with I factor tapped in position. The rods then compressed locked into final position bilaterally. The transverse processes of L for L5 and sacral ala burred to subcortical bleeding bone. Infuse collagen sponge bone mass graft locally harvested morselized autograft placed in the posterior lateral gutters. 15 round JORDAN drain inserted. The incision was then closed with 1 Vicryl the fascia 2-0 Vicryl subcutaneously and 4 Monocryl for final skin closure. Steri-Strips sterile dressing placed. Patient waken taken to PACU in stable condition. Please note spinal cord monitoring was utilized at the procedure no changes noted. Lastly Devonte Santoro was present at the entire procedure and all the patient positioning complex course of the surgery and fascial closure. I attest to the content of the Intraoperative Record and any orders documented therein. Any exceptions are noted below.
--- NOTE | 2023-06-13 17:19 | Anesthesiology Progress Note ---
Date of Service June 13, 2023 Anesthesia Post Procedure Vital Signs Vital Signs: Temp Pulse Pulse Resp BP Pulse Ox O2 Del Method 06/13/23 17:10 72 12 133/90 97 Oxymask 06/13/23 17:00 75 12 128/80 97 Oxymask 06/13/23 16:50 71 13 127/81 98 Oxymask 06/13/23 16:40 92 H 17 154/94 H 98 Oxymask 06/13/23 16:34 36.0 C L 83 16 134/97 98 Oxymask 06/13/23 11:19 36.4 C L 59 L 16 134/92 99 Room Air O2 Flow Rate 06/13/23 17:10 8 06/13/23 17:00 8 06/13/23 16:50 8 06/13/23 16:40 8 06/13/23 16:34 8 06/13/23 11:19 Pain Intensity Bilateral Lower Back: Pain Intensity: 8 Transfer of Care Handoff Completed per policy Notes Mental Status: alert / awake / arousable Patient Amnestic to Procedure: Yes Nausea / Vomiting: adequately controlled Pain: adequately controlled Airway Patency, RR, SpO2: stable & adequate BP & HR: stable & adequate Hydration State: stable & adequate Anesthetic Complications: no major complications apparent
--- NOTE | 2023-06-13 17:44 | Fluoroscopy Report ---
FL lumbar spine 2-3V CLINICAL HISTORY: L4-S1 DECOMPRESSION AND FUSION COMPARISON STUDY: None FLUOROSCOPY TIME: 20 seconds FLUOROSCOPY IMAGES: 2 EXPOSURE DOSE: 11.70 mGy FINDINGS: Posterior interbody kelsy and screw fusion hardware with discectomy noted at L4-S1. Hardware appears intact. No unexpected opaque foreign body identified. No acute fracture identified. IMPRESSION: Fluoroscopic assistance as above. ACT 112: Negative or not required by law. Electronically signed by: Roland Morales M.D. 06/13/2023 5:43 PM
[2023-06-13] MEDS: LACTATED RINGER'S 1,000 ML IV SCH (17:58)
[2023-06-13] MEDS ORDERED: traMADol HCL 50 MG TABLET PO PRN (18:03)
[2023-06-13] MEDS ORDERED: ACETAMINOPHEN 500 MG TAB PO PRN (18:03)
[2023-06-13] MEDS ORDERED: ASPIRIN 81 MG ECTAB PO SCH (18:03)
[2023-06-13] MEDS ORDERED: HYDROmorphone INJ 1 MG/ML SYRINGE IV PRN (18:03)
[2023-06-13] MEDS ORDERED: FAMOTIDINE 20 MG TAB PO PRN (18:03)
[2023-06-13] MEDS ORDERED: diphenhydrAMINE Capsule 25 MG CAP PO PRN (18:03)
[2023-06-13] MEDS ORDERED: HYDROmorphone INJ 0.5 MG/0.5 ML SYR IV PRN (18:03)
[2023-06-13] MEDS ORDERED: NITROGLYCERIN SL 0.4 MG/TAB TAB SL PRN (18:03)
[2023-06-13] MEDS ORDERED: hydrOXYzine HCl 25 MG TAB PO PRN (18:03)
[2023-06-13] MEDS ORDERED: bisacodyL 10 MG SUPP PR PRN (18:03)
[2023-06-13] MEDS ORDERED: PROMETHAZINE HCL 12.5 MG in SODIUM CHLORIDE 0.9% 50 ML IV PRN (18:03)
[2023-06-13] MEDS ORDERED: METOCLOPRAMIDE HCL INJ 5 MG/ML 2 ML VIAL IV PRN (18:03)
[2023-06-13] MEDS ORDERED: ACETAMINOPHEN 1,000 MG/100 ML VIAL IV PRN (18:03)
[2023-06-13] MEDS ORDERED: DO NOT ADMINISTER PNEUMOCOCCAL VACCINE PRN (18:03)
[2023-06-13] MEDS ORDERED: NALOXONE HCL 0.4 MG/1 ML VIAL/CARP IV PRN (18:03)
[2023-06-13] MEDS ORDERED: LORazepam 0.5 MG TAB PO PRN (18:03)
[2023-06-13] MEDS ORDERED: MAGNESIUM HYDROXIDE SUSP 30 ML UDC PO PRN (18:03)
[2023-06-13] MEDS ORDERED: LORazepam 2 MG/1 ML VIAL IV PRN (18:03)
[2023-06-13] MEDS ORDERED: DO NOT ADMINISTER FLU VACCINE PRN (18:03)
[2023-06-13] MEDS ORDERED: ONDANSETRON 4 MG OD TAB PO PRN (18:03)
[2023-06-13] MEDS ORDERED: SOD PHOSPHATE/SOD BIPHOSPHATE ENEMA 132 ML BTL PR PRN (18:03)
[2023-06-13] MEDS ORDERED: ALUMINUM/MAGNESIUM SUSP 30 ML UDC PO PRN (18:03)
[2023-06-13] MEDS ORDERED: ALBUTEROL HFA 8 GM INHALER INH PRN (18:22)
--- NOTE | 2023-06-13 18:25 | Consultation ---
Date of Consultation June 13, 2023 Assessment & Plan (1) Status post lumbar surgery: (2) Neurogenic claudication due to lumbar spinal stenosis: Post op day# 0 S/P L3-S1 decompression, L4-S1 fusion by Dr Charley MONTES number 100 mL -pain management per ortho -wound management per ortho -PT/OT as appropriate -DVT prophylaxis per ortho -incentive spirometry -monitor H&H for acute blood loss anemia; pre-op Hgb: 16 (3) Asthma: -No signs exacerbation -Continue home inhalers (4) Acid reflux: -Continue PPI (5) Hyperlipidemia: -Continue atorvastatin DVT Prophylaxis -SCDs Disposition per primary service Follows with Dr Demar Low for routine care Pt was seen and care coordinated with Dr Miranda. See addendum Thank you for this consultation. We will follow the patient with you during their hospital stay. You can reach a member of the [facility] Hospitalist Team 03/03 via [employer] Supervising Physician Co-Signing Physician Notes Patient was seen and examined at bedside. Patient doing well postoperatively. Reports BLE radicular symptoms getting better, reports operative site pain. Has some nausea, patient reassured that usually better after anesthesia wears off. As needed pain medications and nausea medication on board. ON Exam, GENERAL: Alert and oriented x3. NAD, on RA. HEENT: No pallor, no icterus. Pupils equal, round and reactive to light. Oral mucosa moist. NECK: No JVD, no neck masses. HEART: S1 and S2 heard. Regular rate and rhythm. No murmur, no gallop. RESPIRATORY SYSTEM: Normal AP diameter. No accessory muscle use. No wheezing, no crackles. ABDOMEN: Soft, bowel sounds present, nontender, no distention. CENTRAL NERVOUS SYSTEM: No facial droop. Speech is clear. Obeys simple commands. Moves extremities. EXTREMITIES: No edema, no erythema seen. Low back w/ dressing c/d/i JORDAN drain w/ serosanguineous collection noted. I have seen and examined the patient and have discussed the case with the provider above. I agree with the assessment and plan as stated. History of Present Illness Requesting Physician: Dr Whitehead Reason for Consultation: Post op medical management Attending Physician: Zander Whitehead, DO History of Present Illness Patient is 42 y/o M with PMH asthma, dyslipidemia, GERD seen in medical consultation s/p L3-S1 decompression, L4-S1 fusion today by Dr. Whitehead. Postop patient complains of nausea without vomiting. Reports pain controlled. Denies abdominal pain. Reports last BM this morning. Patient reports last drink of a lcohol 1 month ago. Denies fever/chills, THOMAS, dizziness, CP, SOB, palpitations, cough, abdominal pain, paresthesias, extremity weakness, extremity edema, rashes, urinary symptoms. Allergies Allergy/AdvReac Type Severity Reaction Status Date / Time Penicillins Allergy Severe Anaphylaxis Verified 06/13/23 11:15 ENVIRONMENTAL Allergy Intermediate ITCHY Uncoded 05/22/23 12:54 EYES, SNEEZING, CONGESTION Home Medications Medication Instructions Recorded Confirmed Type aspirin 81 mg tablet,delayed 81 mg PO ONCE 10/25/21 06/13/23 History release atorvastatin 40 mg tablet 40 mg PO DAILY #30 tabs 10/26/21 05/22/23 Rx nitroglycerin 0.4 mg sublingual 0.4 mg sublingual DAILY PRN chest 10/26/21 05/22/23 Rx tablet (Nitrostat) pain #30 tabs thiamine HCl (vitamin B1) 100 mg 100 mg PO QAM #30 tabs 10/26/21 05/22/23 Rx tablet albuterol sulfate 90 mcg/actuation 1 inh inhalation QID PRN Wheezing 05/22/23 06/13/23 History breath activated powder inhaler fluticasone 500 mcg-salmeterol 50 1 inh inhalation BID 06/13/23 06/13/23 History mcg/dose blistr powdr for inhalation (Wixela Inhub) pantoprazole 40 mg tablet,delayed 40 mg PO DAILY 06/13/23 06/13/23 History release Patient History Medical History (Updated 06/13/23 @ 18:53 by Geneva Foreman PA-C) Eczema Spinal stenosis Kidney stones passed on own Chronic back pain History of COVID-2021 > mild-denies hospitalization-symptoms resolved Asthma daily res inh use due to allergy season Acid reflux controlled, stable per pt Hyperlipidemia not taking prescribed med, last blood work was good per pt Alcohol abuse pt denies Tobacco use weekly use Chest pain one time event, no more issues, [facility] 10/2021 Surgical History (Updated 06/13/23 @ 18:53 by Geneva Foreman PA-C) Hx of fracture of femur with repair, right History of appendectomy History of tooth extraction Family History Father Myocardial infarction [place] in his 40s Social History Smoking Status: Current some day smoker Tobacco Type: Cigarettes Cigarettes Per Day: light use, not daily-advised; Second Hand Exposure: No; Do You Dip or Chew Tobacco: No; Tobacco Cessation Education Requested by Patient: No Hx Alcohol Use: Yes Alcohol type: beer Hx Substance Use: No Preferred Language: French Communication Ability: Effective Bathhouse Attendant Required: No Beliefs That Will Affect Care: None Current Living Situation: Significant Other Other Information That Helps Us Care for You: No Feels Safe at Home: Yes Safety Concerns: Feels Safe At This Time Assistive Devices: Denture - Upper and Glasses Review of Systems Review of Systems: All systems reviewed & are unremarkable except as noted in HPI & below Physical Exam Physical Exam: General: +nausea, WDWN Head: normocephalic, atraumatic Eyes: conjunctiva non-injected, anicteric ENT: normal inspection external ears, nose, mucous membranes moist Neck: supple, trachea midline, non-tender Lungs: clear, no respiratory distress, no wheezing/rhonchi/rales CV: RRR, no murmur, no pretibial edema Abd: normal BS, soft, non-tender Back: surgical dressing, +JORDAN drain with serosanguineous drainage Ext: no cyanosis, no calf tenderness Neuro: A&O x 3, no focal deficits noted, normal affect Skin: warm, dry Results & Data Vital Signs (Past 12 Hours) Vital Signs Temp Pulse Pulse Resp BP Pulse Ox O2 Del Method 06/13/23 18:03 Nasal Cannula 06/13/23 18:03 36.4 C L 74 14 110/76 95 Nasal Cannula 06/13/23 17:40 72 13 118/73 95 Nasal Cannula 06/13/23 17:30 36.3 C L 77 14 120/78 94 Nasal Cannula 06/13/23 17:20 92 H 12 122/86 94 Room Air 06/13/23 17:10 72 12 133/90 97 Oxymask 06/13/23 17:00 75 12 128/80 97 Oxymask 06/13/23 16:50 71 13 127/81 98 Oxymask 06/13/23 16:40 92 H 17 154/94 H 98 Oxymask 06/13/23 16:34 36.0 C L 83 16 134/97 98 Oxymask 06/13/23 11:19 36.4 C L 59 L 16 134/92 99 Room Air O2 Flow Rate 06/13/23 18:03 2 06/13/23 18:03 2 06/13/23 17:40 2 06/13/23 17:30 2 06/13/23 17:20 06/13/23 17:10 8 06/13/23 17:00 8 06/13/23 16:50 8 06/13/23 16:40 8 06/13/23 16:34 8 06/13/23 11:19
[2023-06-13] MEDS ORDERED: PROMETHAZINE HCL 12.5 MG in SODIUM CHLORIDE 0.9% 50 ML IV STA (18:35)
[2023-06-13] MEDS: DOCUSATE SODIUM/SENNA 50/8.6MG TAB PO SCH (20:02)
[2023-06-13] MEDS: CLINDAMYCIN/D5W 600 MG/50 ML BAG IV SCH (22:04)
[2023-06-14] MEDS: LACTATED RINGER'S 1,000 ML IV SCH ×2 (00:45→08:13)
[2023-06-14] MEDS: oxyCODONE HCL IR 5 MG TAB (IMMEDIATE RELEASE) PO PRN ×5 (00:50→23:36)
[2023-06-14] MEDS: CLINDAMYCIN/D5W 600 MG/50 ML BAG IV SCH ×2 (06:20→14:25)
[2023-06-14] MEDS: POLYETHYLENE (MIRALAX) 17 GM PACK PO SCH ×4 (06:30→23:49)
[2023-06-14 07:00] LABS: Basophils # (auto) 0.02 K/uL (0.00-0.20); Basophils % (auto) 0.2 %; Hematocrit (blood only) 40.2 % (42.0-52.0); Hemoglobin 13.9 g/dl (14.0-18.0); Immature Granulocytes # (auto) 0.05 K/uL (0.01-0.20); Immature Granulocytes % (auto) 0.4 %; Lymphocytes # (auto) 0.92 K/uL (1.20-3.40); Lymphocytes % (auto) 6.9 %; Mean Corpuscular Hemoglobin 31.6 pg (25.0-34.0); Mean Corpuscular Hgb Conc 34.6 g/dL (32.0-36.0); Mean Corpuscular Volume 91.4 fL (80.0-100.0); Mean Platelet Volume 9.2 fL (9.4-12.4); Monocytes # (auto) 0.52 K/uL (0.11-0.59); Monocytes % (auto) 3.9 %; Neutrophils # (auto) 11.82 K/uL (1.40-6.50); Neutrophils % (auto) 88.6 %; Platelet Count 255 K/uL (130-400); RDW Coefficient of Variation 12.8 % (11.5-14.5); RDW Standard Deviation 43.6 fL (36.4-46.3); White Blood Count 13.33 K/ul (4.8-10.8)
[2023-06-14 07:50] LABS: BUN Creatinine Ratio 12.7 (10-20); Creatinine Clr Calc Pharmacy 90.2 ml/min; Est GFR (African American) 103.1 ml/min; Potassium 4.3 mmol/L (3.5-5.1)
[2023-06-14] MEDS: THIAMINE HCL 100 MG TAB PO SCH (08:51)
[2023-06-14] MEDS: ATORVASTATIN 40 MG TAB PO SCH (08:51)
[2023-06-14] MEDS: PANTOprazole 40 MG TAB PO SCH (08:51)
[2023-06-14] MEDS: dexAMETHasone 6 MG in SYRINGE 0 ML IV SCH (08:52)
[2023-06-14] MEDS: FLUTICASONE/VILANTEROL 200/25MCG 14 PUFFS/INHALER INH SCH (09:41)
--- NOTE | 2023-06-14 11:34 | Orthopedic Progress Note ---
Date of Service June 14, 2023 Assessment & Plan (1) Neurogenic claudication due to lumbar spinal stenosis: Plan: At this time continue physical therapy monitor his JORDAN operatively discharge home next 2 days. Admission and Anticipated Discharge Date Admission Date: June 13, 2023 Subjective Patient's back pain is controlled leg pain improved Physical Exam Physical Exam: On exam he is comfortably sitting in bed. Specialty testing. Results & Data Vital Signs (Past 12 Hours) Vital Signs Temp Pulse Resp BP Pulse Ox O2 Del Method 06/14/23 07:44 36.6 C 66 16 107/71 95 Room Air 06/14/23 04:08 36.5 C 61 16 101/63 98 Room Air
--- NOTE | 2023-06-14 13:55 | Hospitalist Progress Note ---
Date of Service June 14, 2023 Assessment & Plan (1) Status post lumbar surgery: (2) Neurogenic claudication due to lumbar spinal stenosis: Plan: Post op day# 1 S/P L3-S1 decompression, L4-S1 fusion by Dr Charley MONTES number 100 mL Hg 16 --> 13.9 otherwise stable overall (3) Asthma: Plan: reports he uses rescue inhaler multiple times at home, which is his baseline Breo dose increased by PCP recently Spiriva 2 puffs daily ordered (4) Acid reflux: Plan: -Continue PPI (5) Hyperlipidemia: Plan: -Continue atorvastatin DVT Prophylaxis -SCDs Disposition per primary service Follows with Dr Demar Low for routine care Thank you for this consultation. We will follow the patient with you during their hospital stay. You can reach a member of the [facility] Hospitalist Team 03/03 via [employer] Admission and Anticipated Discharge Date Admission Date: June 13, 2023 Subjective ff up for s/p Lumbar Spine Surgery, etc seen resting in bed, comfortable in good spirits mild back pain states he feels fine overall no chest pain, dyspnea, palpitations, dizziness breathing is at baseline ambulated in the halls no issues Review of Systems Review of Systems: all noted and negative except for above Physical Exam Physical Exam: General- oriented x 3, not in distress, speaks in sentences with no effort or accessory muscle use Eyes- anicteric Neck- no JVD Lungs- clear breath sounds bilaterally, no rales/wheezes Heart- normal rate, regular rhythm; no murmurs Abdomen- normal bowel sounds, nondistended, soft, nontender Extremities- no pretibial edema, no calf tenderness Back- surgical dressing: no bleeding or discharge Neuro- alert, oriented x 3; no gross focal neurologic deficits Skin- warm & dry Results & Data Results & Data Vital Signs (Past 12 Hours) Vital Signs Temp Pulse Resp BP Pulse Ox O2 Del Method 06/14/23 11:00 37.0 C 87 16 138/82 95 Room Air 06/14/23 07:44 36.6 C 66 16 107/71 95 Room Air 06/14/23 04:08 36.5 C 61 16 101/63 98 Room Air all noted and reviewed including below
[2023-06-14] MEDS: UMECLIDINIUM BROMIDE 62.5MCG/BLISTER 7 PUFFS/INHALER INH SCH (14:24)
[2023-06-14] MEDS: DOCUSATE SODIUM/SENNA 50/8.6MG TAB PO SCH (19:50)
[2023-06-15] MEDS: POLYETHYLENE (MIRALAX) 17 GM PACK PO SCH (05:13)
[2023-06-15] MEDS: FLUTICASONE/VILANTEROL 200/25MCG 14 PUFFS/INHALER INH SCH (08:18)
[2023-06-15] MEDS: ATORVASTATIN 40 MG TAB PO SCH (08:19)
[2023-06-15] MEDS: UMECLIDINIUM BROMIDE 62.5MCG/BLISTER 7 PUFFS/INHALER INH SCH (08:19)
[2023-06-15] MEDS: THIAMINE HCL 100 MG TAB PO SCH (08:19)
[2023-06-15] MEDS: PANTOprazole 40 MG TAB PO SCH (08:19)
[2023-06-15] MEDS: dexAMETHasone 6 MG in SYRINGE 0 ML IV SCH (08:19)
[2023-06-15 09:51] LABS: Basophils # (auto) 0.05 K/uL (0.00-0.20); Basophils % (auto) 0.4 %; Eosinophils # (auto) 0.07 K/uL (0.00-0.50); Eosinophils % (auto) 0.6 %; Hematocrit (blood only) 39.6 % (42.0-52.0); Hemoglobin 13.7 g/dl (14.0-18.0); Immature Granulocytes # (auto) 0.07 K/uL (0.01-0.20); Immature Granulocytes % (auto) 0.6 %; Lymphocytes # (auto) 1.81 K/uL (1.20-3.40); Lymphocytes % (auto) 14.5 %; Mean Corpuscular Hemoglobin 31.5 pg (25.0-34.0); Mean Corpuscular Hgb Conc 34.6 g/dL (32.0-36.0); Mean Platelet Volume 9.1 fL (9.4-12.4); Monocytes # (auto) 0.57 K/uL (0.11-0.59); Monocytes % (auto) 4.6 %; Neutrophils # (auto) 9.91 K/uL (1.40-6.50); Neutrophils % (auto) 79.3 %; Platelet Count 253 K/uL (130-400); RDW Coefficient of Variation 13.2 % (11.5-14.5); RDW Standard Deviation 44.7 fL (36.4-46.3); Red Blood Count 4.35 M/uL (4.70-6.10); White Blood Count 12.48 K/ul (4.8-10.8)
[2023-06-15] MEDS: oxyCODONE HCL IR 5 MG TAB (IMMEDIATE RELEASE) PO PRN (11:14)
--- NOTE | 2023-06-15 11:25 | Discharge Summary ---
Date of Service June 15, 2023 Admission HPI Per Admitting Provider This is a 42-year-old male who presents with chronic persistent back and leg pain after failing course of nonoperative care is here for surgical invention. Principal Diagnosis Lumbar spinal stenosis with neurogenic claudication Discharge Data Allergies Allergy/AdvReac Type Severity Reaction Status Date / Time Penicillins Allergy Severe Anaphylaxis Verified 06/13/23 11:15 ENVIRONMENTAL Allergy Intermediate ITCHY Uncoded 05/22/23 12:54 EYES, SNEEZING, CONGESTION Consultations 06/13/23 18:03 Consult Hospitalist Routine Procedures Performed Operation Date: 06/13/23 12:35 Actual Procedures p L4-S1 Decompression and Fusion, Spinal Cord Monitoring(Not Applicable) - Zander Whitehead DO Ordered Studies 06/13/23 12:35 FL lumbar spine 2-3V Routine Hospital Course (1) Neurogenic claudication due to lumbar spinal stenosis: Patient went lumbar decompression fusion tolerated as well as taken to orthopedic floor postoperative. Postoperatively progressed appropriately. JORDAN drain decreasing up well. Excellent strength testing. Pain well controlled. Simply discharged home. Discharge orders and instructions found in chart for further review. Total Time Total Time Spent Total Time Spent (In Minutes): 20 minutes Discharge Plan Discharge Items Patient Disposition: Home - Self-Care Reason For Visit: POSTOP Discharge Diagnosis: Lumbar spinal stenosis with neurogenic claudication Activity: As commented below Non-emergency contact: Primary Care Provider Call non-emergency contact if: you have any medication questions Follow-up/Referrals: Demar Low MD [Primary Care Provider] - Diet: Regular Addtl Attending Provider Instructions: ACTIVITY RECOMMENDATIONS: SELF CARE INSTRUCTIONS AFTER THORACIC/LUMBAR FUSIONS 1. You may walk to your tolerance. It is good exercise for your legs and back. Expect some back and intermittent leg aches and pains. 2. You may perform "counter-top" level activities (make a sandwich, yenny with a project, etc.). 3. No bending or lifting of more than 10 pounds or back twisting of any nature (roll like a log when turning in bed). 4. You may ride in a car for 20-30 minutes at a time. No driving until after your first visit with your doctor. 5. Frequent changes of position and restricting sitting to 30 minutes at a time will help limit the amount of back spasms and stiffness you may experience. 6. You may discontinue the use of ambulatory aids (cane, crutches, etc.) once your strength and confidence allow. 7. You may supervisor pumping station the shower and let water strike your incision when you arrive home at least once daily. Do not take a tub bath, sit in a hot tub or go into a swimming pool until after your first recheck in the office. SPECIAL CARE INSTRUCTIONS: VERY IMPORTANT TO READ AND REVIEW A. Your surgical incision has been closed with a cosmetic suture under the skin that will dissolve in about 6 weeks. In 14 days, you can use a pair of clean scissors and cut the suture that is left outside of the skin at the ends of your incision. 1. The small skin tapes can be removed 7 days after surgery if they have not fallen off by that point. 2. You may keep the wound open to air as much as possible to promote healing after post-op day number 5 unless told otherwise by your doctor. 3. If you think the wound looks like it is becoming infected (redness or worsening drainage) and/or you are experiencing fever, chill or worsening back pain and muscle spasms, contact the office so that we may evaluate you as soon as possible. B. Complications are uncommon, but please contact us if you have any signs or symptoms of: 1. wound infection (fever higher than 102.5 degrees F, redness, separation of wound, drainage, or increasing pain from the incision) 2. blood clots in legs (pain, swelling, redness and warmth in legs) 3. urinary tract infection (fever higher than 102.5 degrees F, burning upon urination or increased frequency of urination) 4. nerve problems (inability to walk on your toes or heels, numbness, loss of bowel or bladder control) 5. any other symptoms that concern you C. Please call the office at if you have any concerns or questions about your operation or recovery. D. No smoking! Smoking drastically decreases the chance of a solid fusion. E. Do not take any anti-inflammatory medications (Indocin, Advil, Motrin, Aspirin, Naprosyn, etc.) as these may inhibit the chance of a solid fusion. Tylenol is okay to take for pain. MANAGING PAIN AFTER SPINAL SURGERY 1. Narcotic medication is intended for short-term use and will be provided for surgical pain. Surgical pain usually lasts for a period of 4-6 weeks. Narcotic medication includes Percocet, Vicodin, Darvocet, Tylenol #3 or Lortab. 2. Longer-term pain is more appropriately treated with non-narcotic medication such as Tylenol ES. 3. Muscle spasm is not appropriately treated with narcotics. Muscle relaxers such as Soma, Flexeril or Skelaxin can be used along with Tylenol ES. 4. Remember that we all live with some "aches and pains". This is not unusual or uncommon after an injury or as we get older. a. Back pain is expected and may include muscle spasms for 4 to 6 weeks after surgery. The pain should gradually improve. If the pain worsens for no apparent reason, please contact the office. b. Intermittent leg pain may also be experienced and should not be concerned about unless it worsens for no apparent reason. If so, please contact the office. 5. We will provide appropriate medication within the normal guidelines of their prescribed use. We will also be very cautious and aware of potential abuse and extended duration of patients' medication needs. a. Pain medications are for your comfort and to assist with sleep and rest so that the tissue can heal. They are not provided in order to return to normal activity and should not be used through the day. To do so or worsening pain at night can result from ongoing tissue damage and development of tolerance to the prescribed medicine. 6. Please allow 2-3 days to process refills. Prescriptions will not be mailed but must be picked up at the office. FOLLOW UP VISIT: Keep your scheduled follow-up appointment. Any questions, please call the office at . Pending Studies at Discharge: No Stand-Alone Forms: My [facility] [employer], Smoking Cessation Medications and DC Order Prescriptions: New tramadol 50 mg tablet 50 mg PO Q6H PRN (Reason: pain, moderate) Qty: 30 0RF oxycodone 5 mg tablet 5 mg PO Q6H PRN (Reason: pain) Qty: 30 0RF Continued aspirin 81 mg Tablet,Delayed Release (Dr/Ec) 81 mg PO ONCE Patient Comments: has not been taking 05/22/23 Rx Instructions: THIS WAS A ONE TIME DOSE. atorvastatin 40 mg tablet 40 mg PO DAILY Qty: 30 0RF Patient Comments: has not been taking 05/22/23 thiamine HCl (vitamin B1) 100 mg Tablet 100 mg PO QAM Qty: 30 0RF Patient Comments: has not been taking 05/22/23 nitroglycerin [Nitrostat] 0.4 mg Tablet, Sublingual 0.4 mg sublingual DAILY PRN (Reason: chest pain) Qty: 30 0RF albuterol sulfate 90 mcg/actuation Aerosol Powdr Breath Activated 1 inh INHALATION QID PRN (Reason: Wheezing) pantoprazole 40 mg tablet,delayed release (DR/EC) 40 mg PO DAILY fluticasone propion-salmeterol [Wixela Inhub] 500-50 mcg/dose blister with device 1 inh INHALATION BID Discharge Orders: Discharge Order (Routine); Ordered 06/15/23 Ordered By: Zander Whitehead Admission Data Admit Date/Time: 06/13/23 16:17 Attending Provider: Zander Whitehead Admit Provider: Zander Whitehead Primary Care Provider: Demar Low Other Providers: Joyce Mcclain; Sal Chavez
== END 2023-06-15 13:45 | disposition home or self-care (01) | DRG 455 ==
LOC: ASU 10:57 → 3E 16:17